=== PATIENT | male | born 1980 | race Caucasian/White ===

== ENCOUNTER 2016-07-06 00:01 | Outpatient (POV) ==
[2016-04-07 12:00] VITALS: BMI 45.8
== END 2016-07-06 00:02 ==
LOC: OUTPT 00:01
PROVIDERS: ATTEND Otolaryngology
DX: H91.90 Unspecified hearing loss, unspecified ear (principal)
CPT/HCPCS: 92557; 92567

== ENCOUNTER 2016-07-06 08:11 | Outpatient (CLI) ==
[2016-04-07 12:00] VITALS: BMI 45.8
--- NOTE | 2016-07-06 09:44 | MRI ---
EXAM: MRI brain without IV contrast. DATE: 07/06/2016. HISTORY: Headache. TECHNIQUE: Sagittal T1W, axial T2W, axial FLAIR, axial T1W, axial DWI, and coronal T2W GRE sequence s of the brain were obtained using 1.2 Susan magnet. No IV contrast. COMPARISON: None. FINDINGS: The ventricles and cisterns are normal in size and configuration. Some frontal and parie hakan lobe sulci near the superior vertex the brain are somewhat prominent due to involutional change. No midline shift, mass effect or abnormal extra-axial fluid collection is apparent. No acute infa rct, hemorrhage or neoplasm is identified. The ervin - white matter differentiation is normal. The 7th/8th cranial nerve complexes, cerebellopontine angles, brainstem, and visible cervical spinal cor d are normal. There is no cerebellar tonsillar ectopia. The pituitary gland is somewhat small in s ize. Corpus callosum is normal in size and configuration. Flow voids are present in the major intr acranial arteries and in the dural venous sinuses. No aneurysm, AVM or dural venous sinus thrombosi s is apparent. No orbit abnormality is identified. The mastoid air cells are unremarkable. There is no acute sinusitis. Frontal sinuses are hypoplastic. There is mild mucosal thickening vs retent ion cyst in the left maxillary sinus floor. No neck mass or lymphadenopathy is detected. No calvar ial neoplasm or acute fracture is evident. IMPRESSIONS: 1. No acute infarct, hemorrhage, neoplasm or hydrocephalus. 2. Minor cerebral involutional change (primarily frontoparietal). 3. Slightly small pituitary gland.
== END 2016-07-06 08:12 | disposition home or self-care (01) ==
LOC: RAD 08:11
PROVIDERS: ATTEND Nurse Practitioner Family
DX: R51 Headache (principal); H53.9 Unspecified visual disturbance

== ENCOUNTER 2016-09-23 08:44 | Outpatient (CLI) ==
[2016-04-07 12:00] VITALS: BMI 45.8
[2016-09-23 15:34] LABS: BASOPHILS % (AUTO) 0.5 % (0.0-3.0); EOSINOPHILS # (AUTO) 0.1 K/ul (0.0-0.7); EOSINOPHILS % (AUTO) 1.2 % (0.0-7.0); HEMATOCRIT 48.9 % (42.0-52.0); HEMOGLOBIN 16.2 g/dl (14.0-18.0); IMMATURE GRANULOCYTE % (AUTO) 0.3 % (0.0-5.0); LYMPHOCYTES # (AUTO) 1.6 K/uL (0.60-3.4); LYMPHOCYTES % (AUTO) 21.6 (10.0-50.0); MEAN CORPUSCULAR HEMOGLOBIN 31.5 pg (27.0-31.0); MEAN CORPUSCULAR HGB CONC 33.1 (31.8-35.4); MEAN CORPUSCULAR VOLUME 95.1 fl (80.0-94.0); MONOCYTES # (AUTO) 0.8 K/uL (0.4-2.0); MONOCYTES % (AUTO) 11.1 (0-10); NEUTROPHILS % (AUTO) 65.3; PLATELET COUNT 308 10^3/uL (140-440); RED BLOOD COUNT 5.14 10^6/ul (4.70-6.10)
[2016-09-23 15:38] LABS: FLU INTERNAL QC INTERNAL QC VALID; RAPID FLU A NEGATIVE (NEGATIVE); RAPID FLU B NEGATIVE (NEGATIVE)
[2016-09-23 16:10] LABS: ALBUMIN 4.2 g/dL (3.4-5.0); ALBUMIN/GLOBULIN RATIO 1.14; ANION GAP 12.1; BILIRUBIN,TOTAL 0.54 mg/dL (0.00-1.20); BUN/CREATININE RATIO 15.73; CALCIUM 9.6 mg/dL (8.2-10.2); CHOL/HDL RATIO 4.3 (4.5-6.4); CREATININE 0.89 mg/dL (0.60-1.10); POTASSIUM 4.1 mmol/L (3.5-5.1); TOTAL PROTEIN 7.9 g/dL (6.4-8.2)
== END 2016-09-23 08:45 | disposition home or self-care (01) ==
LOC: LAB 08:44
PROVIDERS: ATTEND Nurse Practitioner Family
DX: M79.1 Myalgia (principal); I10 Essential (primary) hypertension; E66.9 Obesity, unspecified; J02.9 Acute pharyngitis, unspecified; R05 Cough
CPT/HCPCS: 36415; 80053; 80061; 84443; 85025; 87651; 87804; 87880

== ENCOUNTER 2016-10-06 12:02 | Outpatient (CLI) | payer OTHER ==
[2016-04-07 12:00] VITALS: BMI 45.8
[2016-10-06 13:42] LABS: BILIRUBIN,URINE Negative (NEGATIVE); KETONES,URINE Negative (NEGATIVE); LEUKOCYTE ESTERASE ,URINE Negative (NEGATIVE); NITRITE,URINE Negative (NEGATIVE); PROTEIN,URINE Negative (NEGATIVE); URINE, BLOOD Negative (NEGATIVE)
[2016-10-06 13:43] LABS: H. PYLORI ANTIBODY NEGATIVE (NEGATIVE); H.PYLORI INTERNAL QC INTERNAL QC VALID
[2016-10-06 14:23] LABS: ADD URINE MICROSCOPIC NO
== END 2016-10-06 12:03 | disposition home or self-care (01) ==
LOC: LAB 12:02
PROVIDERS: ATTEND Nurse Practitioner Family
DX: R31.9 Hematuria, unspecified (principal); R10.9 Unspecified abdominal pain; Z87.442 Personal history of urinary calculi
CPT/HCPCS: 36415; 81001; 86677

== ENCOUNTER 2016-10-07 10:41 | Outpatient (CLI) ==
[2016-04-07 12:00] VITALS: BMI 45.8
--- NOTE | 2016-10-07 11:47 | CT ---
EXAM: CT of the abdomen pelvis with contrast History: Abdominal pain. Comparison: CT abdomen pelvis 04/07/2016 Technique: Multiplanar CT images through the abdomen pelvis were obtained following administration of IV contrast Findings: Partially visualized large calcified lymph nodes again seen within the posterior mediasti num. Lung bases are free of consolidation. Calcified granulomas seen within the left lower lobe. N o acute osseous abnormalities. No discrete gallstones identified by CT. No focal liver or splenic lesions. Pancreas is unremarkab le. Adrenal glands are unremarkable. Bilateral nephrolithiasis measuring up to 4 mm on the right a nd 3 mm on the left. No hydronephrosis. No renal masses. No bowel obstruction. No bladder wall t hickening. The appendix is normal. Prostate is not enlarged. No perirectal inflammation. Impression: Nonobstructing bilateral nephrolithiasis, similar to the prior study. Examination is o therwise unremarkable.
== END 2016-10-07 10:42 | disposition home or self-care (01) ==
LOC: RAD 10:41
PROVIDERS: ATTEND Nurse Practitioner Family
DX: R10.9 Unspecified abdominal pain (principal); R31.9 Hematuria, unspecified; Z87.442 Personal history of urinary calculi

== ENCOUNTER 2016-11-06 20:22 | Emergency (ER) ==
[2016-11-06 20:28] VITALS: BP 149/89; TEMP 98.8; BMI 43.8
[2016-11-06 20:32] LABS: BASOPHILS # (AUTO) 0.1 K/uL (0-0.2); BASOPHILS % (AUTO) 1.1 % (0.0-3.0); EOSINOPHILS # (AUTO) 0.1 K/ul (0.0-0.7); EOSINOPHILS % (AUTO) 1.8 % (0.0-7.0); HEMOGLOBIN 16.9 g/dl (14.0-18.0); IMMATURE GRANULOCYTE % (AUTO) 0.2 % (0.0-5.0); LYMPHOCYTES # (AUTO) 1.9 K/uL (0.60-3.4); LYMPHOCYTES % (AUTO) 29.6 (10.0-50.0); MEAN CORPUSCULAR HEMOGLOBIN 31.3 pg (27.0-31.0); MEAN CORPUSCULAR HGB CONC 34.5 (31.8-35.4); MEAN CORPUSCULAR VOLUME 90.7 fl (80.0-94.0); MONOCYTES # (AUTO) 0.7 K/uL (0.4-2.0); MONOCYTES % (AUTO) 11.9 (0-10); NEUTROPHILS # (AUTO) 3.5 K/ul (2.0-6.9); NEUTROPHILS % (AUTO) 55.4; PLATELET COUNT 250 10^3/uL (140-440); WHITE BLOOD COUNT 6.24 K/ul (4.2-10.2)
[2016-11-06 20:52] LABS: ALBUMIN 4.2 g/dL (3.4-5.0); ALBUMIN/GLOBULIN RATIO 1.35; ANION GAP 13.5; BILIRUBIN,TOTAL 0.87 mg/dL (0.00-1.20); BUN/CREATININE RATIO 9.17; CALCIUM 9.8 mg/dL (8.2-10.2); CREATININE 1.09 mg/dL (0.60-1.10); POTASSIUM 3.5 mmol/L (3.5-5.1); TOTAL PROTEIN 7.3 g/dL (6.4-8.2)
--- NOTE | 2016-11-06 20:59 | ED.PDOC ---
General ED Provider: Dr. JUSTIN ALAS-ER Chief Complaint: Cough Stated Complaint: i coughed up some blood--has chronic abd pain and has appt to see gi soon Time Seen by Physician: 20:25 Mode of Arrival: Walk-In Information Source: Patient Exam Limitations: No limitations [facility] Nursing and Triage Documentation Reviewed and Agree: Yes Respiratory Complaint Exam - Respiratory Complaint/Exam Onset/Duration: several days Symptoms Are: Still present Timing: Intermittent Initial Severity: Mild Current Severity: Moderate Location: Chest Character: Reports: Productive cough Aggravating: Reports: None Alleviating: Reports: None Associated Signs and Symptoms: Reports: Hemoptysis. Denies: Rapid breathing, Dyspnea, Fever, Chills, Chest pain, Pleuritic chest pain, Wheezing, Dizziness, Calf pain, Calf swelling, Edema, URI, Nasal congestion, Hoarseness, Sinus discomfort, Vomiting, Sore throat, Weight loss, Decreased oral intake, Increased thirst, Increased appetite, Increased urination Related History: Reports: Similar episode History of Healthcare-Acquired Pneumonia: No Related Surgical History: Reports: None Cardiac Risk Factors: Reports: Hypertension Tuberculosis Risk Factors: Reports: None Status Asthmaticus Risk Factors: Reports: None Home Oxygen Use: No Recent Stress Test: No Recent Echo/LV Function: No Current Antibiotic Use: No Current Asthma Medication Use: No Respiratory Distress: None Inadequate Respiratory Effort: No Dysphagia Present: No Stridor Present: No JVD Present: No Accessory Muscle Use: No Retractions: Not Present Diminished Breath Sounds: No Sinus Tenderness: None Grunting Respirations: No Kussmaul Respirations: No Differential Diagnoses: Pneumonia, Bronchitis, Other (gerd) Review of Systems - Review Of Systems Constitutional: Reports: No symptoms Eyes: Reports: No symptoms Ears, Nose, Mouth, Throat: Reports: No symptoms Respiratory: Reports: Cough Cardiac: Reports: No symptoms GI: Reports: Abdominal pain : Reports: No symptoms Musculoskeletal: Reports: No symptoms Skin: Reports: No symptoms Neurological: Reports: No symptoms Endocrine: Reports: No symptoms Hematologic/Lymphatic: Reports: No symptoms All Other Systems: Reviewed and Negative Past Medical History - Past Medical History Endocrine: Reports: None Cardiovascular: Reports: Hypertension Respiratory: Reports: Other Hematological: Reports: None Gastrointestinal: Reports: None Genitourinary: Reports: Kidney stones Neuro/Psych: Reports: None Musculoskeletal: Reports: None Cancer: Reports: None - Surgical History General Surgical History: Reports: None, Unknown - Family History Family History: Reports: Unknown - Social History Smoking Status: Never smoker Hx Substance Use: No Alcohol Screening: None Lives: With family - Immunizations Tetanus Shot up to Date: No Physical Exam - Physical Exam Appearance: Well-appearing, No pain distress, Well-nourished Eyes: DOUG, EOMI, Conjunctiva clear ENT: Ears normal, Nose normal, Oropharynx normal Neck: Supple Respiratory: Airway patent, Breath sounds clear, Breath sounds equal, Respirations nonlabored Cardiovascular: RRR GI/: Soft, Nontender, No masses, Bowel sounds normal, No Organomegaly Musculoskeletal: Normal strength, ROM intact, No edema, No calf tenderness Skin: Warm, Dry, Normal color Neurological: Sensation intact, Motor intact, Reflexes intact, Cranial nerves intact, Alert, Oriented Psychiatric: Affect appropriate, Mood appropriate Interpretation - Radiology Interpretation Radiology Interpretation By: Radiologist Radiology Results: Negative Exam Interpreted: CT Scan Critical Care Note - Critical Care Note Total Time (mins): 0 Course - Course Hematology/Chemistry: 11/06/16 20:30 11/06/16 20:30 Orders, Labs, Meds: Lab Review 11/06/16 20:30 WBC 6.24 RBC 5.40 Hgb 16.9 Hct 49.0 MCV 90.7 MCH 31.3 H MCHC 34.5 RDW Coeff of Jack 12.7 Plt Count 250 Immature Gran % (Auto) 0.2 Neut % (Auto) 55.4 Lymph % (Auto) 29.6 [place] % (Auto) 11.9 H Eos % (Auto) 1.8 Baso % (Auto) 1.1 Immature Gran # (Auto) 0.0 Neut # 3.5 Lymph # 1.9 [place] # 0.7 Eos # 0.1 Baso # 0.1 D-Dimer (Manual) 178.86 Sodium 141 Potassium 3.5 Chloride 105 Carbon Dioxide 26 Anion Gap 13.5 BUN 10 Creatinine 1.09 Estimated GFR (MDRD) 77.00 BUN/Creatinine Ratio 9.17 Glucose 112 H Calcium 9.8 Total Bilirubin 0.87 AST 25 ALT 39 Alkaline Phosphatase 53 Total Protein 7.3 Albumin 4.2 Globulin 3.1 Albumin/Globulin Ratio 1.35 Orders Category Date Time Status CBC W/ AUTO DIFF Stat LAB 11/06/16 20:30 Completed COMPREHENSIVE METABOLIC PANEL Stat LAB 11/06/16 20:30 Completed D-DIMER Stat LAB 11/06/16 20:[address] CHEST W/O CONTRAST Stat RADS 11/06/16 20:23 Completed he describes esophageal burning and indigestion--scheduled to see gi in december Vital Signs: Temp Pulse Resp BP Pulse Ox 11/06/16 20:23 98.8 F 101 H 16 149/89 H 97 Departure - Departure Time of Disposition: 21:22 Disposition: HOME SELF-CARE Discharge Problem: Hemoptysis GERD (gastroesophageal reflux disease) Qualifiers: Esophagitis presence: with esophagitis Qualifier Code: (K21.0) Gastro- esophageal reflux disease with esophagitis Instructions: Gastroesophageal Reflux Disease (ED) Condition: Good Pt referred to PMD for follow-up: Yes Additional Instructions: protonix 40mg #30,1rf...carafate 1gr tid #90,1rf---follow up wtih pcp concerning lymphadenopathy in chest Allergies/Adverse Reactions: Allergies No Known Allergies Allergy (Verified 11/06/16 20:30) Disposition Discussed With: Patient
--- NOTE | 2016-11-06 21:12 | CT ---
EXAM: CT of the chest without contrast. HISTORY: Hemoptysis. PROCEDURE: Contiguous axial CT images of the chest without contrast with coronal and sagittal refor mats. FINDINGS: The heart is within normal limits in size. The thoracic aorta is within normal limits in diameter. There are large calcified subcarinal and left hilar lymph nodes measuring up to 6.6 cm. Th ere is calcified granuloma in the left lower lobe. No infiltrate or consolidation. No evidence of m ass. The adrenal glands and visualized portion of the liver are normal in appearance. The bones and soft tissues are unremarkable. Impression: No acute cardiopulmonary disease. Old granulomatous disease.
== END 2016-11-06 21:35 | disposition home or self-care (01) ==
LOC: ED 20:22
DX: R04.2 Hemoptysis (principal); K21.0 Gastro-esophageal reflux disease with esophagitis
CPT/HCPCS: 36415; 80053; 85025; 85379; 99282

== ENCOUNTER 2016-11-08 15:44 | Emergency (ER) ==
[2016-11-08 15:49] VITALS: BP 131/82; TEMP 98; BMI 45.1
[2016-11-08] MEDS ORDERED: OCUFEN 0.03% OPTH SOL OP STA (15:54)
[2016-11-08] MEDS ORDERED: TETRACAINE 0.5% UNIT-DOSE OP STA (15:56)
[2016-11-08] MEDS ORDERED: FLUORETS OP STA (15:56)
[2016-11-08] MEDS ORDERED: EYE-STREAM OP STA (15:57)
[2016-11-08] MEDS ORDERED: FLUORETS OP ONE (15:58)
[2016-11-08] MEDS ORDERED: EYE-STREAM OP ONE (15:58)
[2016-11-08] MEDS ORDERED: TETRACAINE 0.5% UNIT-DOSE OP ONE (15:58)
--- NOTE | 2016-11-08 16:07 | ED.PDOC ---
General ED Provider: Dr. HARINI SIMMONS Chief Complaint: Eye Problem Stated Complaint: F/B SENSATION PAIN X 24 HOURS Time Seen by Physician: 16:00 (NEGATIVEVTRAUMA ) Mode of Arrival: Walk-In Information Source: Patient Exam Limitations: No limitations [facility] T[facility] Documentation Reviewed and Agree: Yes (FARIBA PRESENT) EENT Complaint Exam - Eye Complaint/Exam Onset/Duration: 1 DAY Symptoms Are: Still present Timing: Constant Initial Severity: Moderate Current Severity: Moderate Location: Right Character: Reports: Dull Aggravating: Reports: Light Alleviating: Reports: Darkness Associated Signs and Symptoms: Reports: Photophobia, Clear drainage. Denies: Purulent drainage, Vision impairment, Fever, Swelling Eye Surgical History: Reports: None Penetrating Injury Risk Factors: None Globe Rupture Risk Factors: None Acute Glaucoma Risk Factors: None Optic Artery Occlusion Risk Factors: None Visual Field: Normal Extraocular Movement: Normal Orbit Findings: Normal Globe Findings: Intact Lid Findings: Normal Conjunctival Findings: Red (RIGHT) Corneal Findings: Clear Fluorescein Uptake: Yes (MINIMAL) Fundi: Normal Differential Diagnoses: Conjunctivitis, Corneal Abrasion Review of Systems - Review Of Systems Constitutional: Reports: No symptoms Eyes: Reports: Vision change, Foreign body sensation, Pain, Photophobia Ears, Nose, Mouth, Throat: Reports: No symptoms Respiratory: Reports: No symptoms Cardiac: Reports: No symptoms GI: Reports: No symptoms : Reports: No symptoms Musculoskeletal: Reports: No symptoms Skin: Reports: No symptoms Neurological: Reports: No symptoms Endocrine: Reports: No symptoms Hematologic/Lymphatic: Reports: No symptoms All Other Systems: Reviewed and Negative Past Medical History - Past Medical History Endocrine: Reports: None Cardiovascular: Reports: Hypertension Respiratory: Reports: Other Hematological: Reports: None Gastrointestinal: Reports: None Genitourinary: Reports: Kidney stones Neuro/Psych: Reports: None Musculoskeletal: Reports: None Cancer: Reports: None - Surgical History General Surgical History: Reports: None, Unknown - Family History Family History: Reports: Unknown - Social History Smoking Status: Never smoker Hx Substance Use: No Alcohol Screening: None - Immunizations Tetanus Shot up to Date: (unsure) Physical Exam - Physical Exam Appearance: Well-appearing, No pain distress, Well-nourished Eyes: Conjunctiva inflammed (RIGHT 1MM CORNEAL ABRASION RIGHT SIDE ) ENT: Ears normal, Nose normal, Oropharynx normal Respiratory: Airway patent, Breath sounds clear, Breath sounds equal, Respirations nonlabored Cardiovascular: RRR, Pulses normal, No rub, No murmur GI/: Soft, Nontender, No masses, Bowel sounds normal, No Organomegaly Musculoskeletal: Normal strength, ROM intact, No edema, No calf tenderness Skin: Warm, Dry, Normal color Neurological: Sensation intact, Motor intact, Reflexes intact, Cranial nerves intact, Alert, Oriented Psychiatric: Affect appropriate, Mood appropriate Critical Care Note - Critical Care Note Total Time (mins): 0 Course - Course Orders, Labs, Meds: Orders Category Date Time Status Balanced Salt Solution [Eye-Stream] MEDS 11/08/16 15:58 Discontinued 1 bottle OP .STK-MED ONE Balanced Salt Solution [Eye-Stream] MEDS 11/08/16 15:57 Stat 1 bottle OP ONCE STA Fluorescein Sodium [Fluorets] MEDS 11/08/16 15:58 Discontinued 1 strip OP .STK-MED ONE Fluorescein Sodium [Fluorets] MEDS 11/08/16 15:56 Stat 1 strip OP ONCE STA Flurbiprofen Sodium Opth [Ocufen 0.03% Opth Miguelina] MEDS 11/08/16 15:54 Stat 1 drop OP ONCE STA Tetracaine HCl/Pf [Tetracaine 0.5% Unit-Dose] MEDS 11/08/16 15:58 Discontinued 1 drop OP .STK-MED ONE Tetracaine HCl/Pf [Tetracaine 0.5% Unit-Dose] MEDS 11/08/16 15:56 Stat 2 drop OP ONCE STA Medications Discontinued Medications Generic Name Dose Route Start Last Admin Trade Name Freq PRN Reason Stop Dose Admin Eye Irrigation Solution 1 bottle 11/08/16 15:57 Eye-Stream OP 11/08/16 15:58 ONCE STA Fluorescein Sodium 1 strip 11/08/16 15:56 Fluorets OP 11/08/16 15:57 ONCE STA Flurbiprofen Sodium 1 drop 11/08/16 15:54 Ocufen 0.03% Opth Miguelina OP 11/08/16 15:55 ONCE STA Tetracaine HCl 2 drop 11/08/16 15:56 Tetracaine 0.5% Unit-Dose OP 11/08/16 15:57 ONCE STA Vital Signs: Temp Pulse Resp BP Pulse Ox 11/08/16 15:44 98 F 85 20 131/82 98 Departure - Departure Time of Disposition: 16:07 (RECHECK BY MYSELF IN AM) Disposition: HOME SELF-CARE Discharge Problem: Corneal abrasion Qualifiers: Encounter type: initial encounter Laterality: right Qualifier Code: (S05.01XA) Injury of conjunctiva and corneal abrasion without foreign body, right eye, initial encounter Instructions: Corneal Abrasion (ED) Condition: Good Pt referred to PMD for follow-up: No Additional Instructions: Please call your Family Physician as soon as possible to schedule a follow-up appointment. Allergies/Adverse Reactions: Allergies No Known Allergies Allergy (Verified 11/08/16 15:50)
== END 2016-11-08 16:17 | disposition home or self-care (01) ==
LOC: ED 15:44
DX: S05.01XA Injury of conjunctiva and corneal abrasion without foreign body, right eye, initial encounter (principal)
CPT/HCPCS: 99282

== ENCOUNTER 2016-11-28 16:25 | Outpatient (CLI) | payer OTHER ==
[2016-11-28 17:32] LABS: BILIRUBIN,URINE Negative (NEGATIVE); KETONES,URINE Negative (NEGATIVE); LEUKOCYTE ESTERASE ,URINE Negative (NEGATIVE); NITRITE,URINE Negative (NEGATIVE); PROTEIN,URINE Negative (NEGATIVE); URINE, BLOOD Negative (NEGATIVE)
[2016-11-28 17:37] LABS: ADD URINE MICROSCOPIC NO
== END 2016-11-28 16:26 | disposition home or self-care (01) ==
LOC: LAB 16:25
PROVIDERS: ATTEND Nurse Practitioner Family
DX: R30.9 Painful micturition, unspecified (principal)
CPT/HCPCS: 81001; 87800

== ENCOUNTER 2017-05-15 15:24 | Outpatient (CLI) ==
[2017-05-15 15:40] LABS: BASOPHILS # (AUTO) 0.1 K/uL (0-0.2); BASOPHILS % (AUTO) 0.6 % (0.0-3.0); EOSINOPHILS # (AUTO) 0.2 K/ul (0.0-0.7); EOSINOPHILS % (AUTO) 2.1 % (0.0-7.0); HEMATOCRIT 47.8 % (42.0-52.0); HEMOGLOBIN 16.8 g/dl (14.0-18.0); IMMATURE GRANULOCYTE % (AUTO) 0.4 % (0.0-5.0); LYMPHOCYTES # (AUTO) 1.8 K/uL (0.60-3.4); LYMPHOCYTES % (AUTO) 22.7 (10.0-50.0); MEAN CORPUSCULAR HEMOGLOBIN 31.6 pg (27.0-31.0); MEAN CORPUSCULAR HGB CONC 35.1 (31.8-35.4); MEAN CORPUSCULAR VOLUME 89.8 fl (80.0-94.0); MONOCYTES % (AUTO) 11.8 (0-10); NEUTROPHILS # (AUTO) 5.1 K/ul (2.0-6.9); NEUTROPHILS % (AUTO) 62.4; PLATELET COUNT 268 10^3/uL (140-440); RED BLOOD COUNT 5.32 10^6/ul (4.70-6.10); WHITE BLOOD COUNT 8.12 K/ul (4.2-10.2)
== END 2017-05-15 15:25 | disposition home or self-care (01) ==
LOC: LAB 15:24
PROVIDERS: ATTEND Physician Assistant
DX: R71.8 Other abnormality of red blood cells (principal)
CPT/HCPCS: 36415; 85025

== ENCOUNTER 2025-05-11 12:21 | Inpatient (IN) ==
--- NOTE | 2025-05-11 12:43 | ED.PDOC ---
General [facility] ED Provider: Dr. BOOM JEWELL MD Chief Complaint: Cough Stated Complaint: Patient is a 45-year-old male with past medical history of hypertension who presents with complaint of headache, body aches, nasal congestion, ear fullness, cough, throat pain and elevated blood pressures. The patient states that his symptoms started about a week ago. Cough is productive of yellow phlegm. Patient has been having difficulty sleeping because of the cough as it gets worse when he lies down. Patient denies any abdominal pain, chest pain or shortness of breath. Patient has been having headaches from coughing. He has sore throat from coughing but does not hurt when he swallows. Appetite is decreased. The patient states that his blood pressures have been running high, normally his blood pressures run around 80s systolic over 60s but with this sickness the maximum blood pressure he had at home was 110 systolic. Patient denies any exposure to sick contacts. Patient denies any history of asthma or COPD. Patient denies smoking. Patient denies any exposure to sick contacts. Patient has been taking [id number] medications and it has not helped. Time Seen by Provider: 05/11/25 12:43 Mode of Arrival: Walk-In Information Source: Patient Exam Limitations: No limitations Primary Care Provider: MOHAN SYED Nursing and Triage Documentation Reviewed and Agree: Yes Opioid Naive vs. Tolerant What is Opioid Naive?: *Opioid Naive implies the patient is not already taking opioids or not chronically receiving opioids on a daily basis. *PRN dosing is not "usually" associated with tolerance. *Patients are at higher risk of over-sedation and aspiration. What is Opioid Tolerant?: *Opioid Tolerance implies less than the expected response to an opioid. *Acquired tolerance is defined by the patient taking 60mg of oral morphine daily (or equianalgesic dose of another opioid) for 1 week or more. *Often associated with chronic pain. *May take more than usual dose to achieve desired pain control. Review of Systems Review Of Systems Constitutional: Reports Fever, Weakness and Loss of appetite Eyes: Reports No symptoms Ears, Nose, Mouth, Throat: Reports Nose discharge and Throat pain Respiratory: Reports Cough Cardiac: Reports No symptoms GI: Reports No symptoms : Reports No symptoms Musculoskeletal: Reports Muscle pain Skin: Reports No symptoms Neurological: Reports Headache Endocrine: Reports No symptoms Hematologic/Lymphatic: Reports No symptoms All Other Systems: Reviewed and Negative [facility] Medical History (Updated 05/12/25 @ 02:05 by BOOM JEWELL MD) Hypertension I10 - Essential (primary) hypertension (ICD-10) Hyperlipidemia E78.5 - Hyperlipidemia, unspecified (ICD-10) Social History Smoking and tobacco status: Never smoker Surgical History History of dental surgery 2015 Z92.89 - Personal history of other medical treatment (ICD-10) Physical Exam Physical Exam Appearance: Reports Ill-appearing, No pain distress, Well-nourished and Obese Ill-appearing: Mild Pain Distress: None Eyes: Reports DOUG, EOMI, Conjunctiva clear and Conjunctiva inflammed ENT: Reports Other (Nasal congestion, ear congestion, runny nose) Neck: Supple Respiratory: Reports Breath sounds diminished and Rhonchi; Denies Crackles or Retractions Cardiovascular: Reports RRR, Pulses normal and No murmur GI/: Reports Soft and Nontender Musculoskeletal: Reports Normal strength, ROM intact and No edema Skin: Reports Warm and Normal color Neurological: Reports Sensation intact, Motor intact and Cranial nerves intact Psychiatric: Reports Affect appropriate and Mood appropriate Interpretation Radiology Interpretation Radiology Interpretation By: Radiologist Radiology Results: Positive Exam Interpreted: CXR (CHEST PA AND LATERAL HISTORY: cough, fever. COMPARRISON: 12/06/2024 FINDINGS: The cardiomediastinal silouette is normal in size. Mediastinal and left perihilar calcified granulomas are again suggested. Pulmonary vascularity is within normal limits. Mild left basilar patchy opacities are seen. ) Course Course 05/11/25 12:58 05/11/25 12:58 Orders, Labs, Meds: Lab Review 05/11/25 05/11/25 12:51 12:58 WBC 12.93 H RBC 5.04 Hgb 15.8 Hct 46.7 MCV 92.7 MCH 31.3 H MCHC 33.8 RDW Coeff of Jack 12.4 Plt Count 306 Immature Gran % (Auto) 0.4 Neut % (Auto) 74.3 Lymph % (Auto) 9.9 L [place] % (Auto) 14.2 H Eos % (Auto) 0.8 Baso % (Auto) 0.4 Neut # (Auto) 9.6 H Lymph # (Auto) 1.3 [place] # (Auto) 1.8 Eos # (Auto) 0.1 Baso # (Auto) 0.1 Immature Gran # (Auto) 0.1 Sodium 133.3 L Potassium 3.36 L Chloride 95.4 L Carbon Dioxide 28.4 Anion Gap 12.86 BUN 28.6 H Creatinine 1.37 H Estimated GFR (MDRD) 56.00 BUN/Creatinine Ratio 20.87 Glucose 119.1 H Lactic Acid 0.90 Calcium 9.39 Total Bilirubin 1.22 AST 55.4 ALT 46.1 Alkaline Phosphatase 79.0 NT-Pro-B Natriuret Pep 66 Total Protein 8.49 H Albumin 4.46 Globulin 4.03 Albumin/Globulin Ratio 1.10 Influ A Molecular Assay Negative by naat Influ B Molecular Assay Negative by naat RSV Antigen Negative by naat SARS CoV-2 RNA Rapid LEAH Negative Orders Category Date Time Status ADMIT OBSERVATION [PLACE PATIENT OBSERVATION] .TO ADMISSION 05/11/25 15:04 Active MEDSURG (MONITORED BED) ACTIVITY .Early Mobilization for VTE Prevention CARE 05/11/25 14:50 Active INTAKE & OUTPUT Q8HR CARE 05/11/25 14:50 Active TELEMETRY MONITORING TELE CARE 05/11/25 15:04 Active VITAL SIGNS Q4HR CARE 05/11/25 14:51 Active CARDIAC DIET DIETARY 05/11/25 Dinner Ordered BLOOD CULTURE (ED ONLY) Stat LAB 05/11/25 14:19 Received CBC W/ AUTO DIFF DAILY@0600 LAB 05/12/25 06:00 Ordered CBC W/ AUTO DIFF DAILY@0600 LAB 05/13/25 06:00 Ordered CBC W/ AUTO DIFF Stat LAB 05/11/25 12:58 Completed CMP [COMPREHENSIVE METABOLIC PANEL] Stat LAB 05/11/25 12:58 Completed COMPREHENSIVE METABOLIC PANEL DAILY@0600 LAB 05/12/25 06:00 Ordered COMPREHENSIVE METABOLIC PANEL DAILY@0600 LAB 05/13/25 06:00 Ordered COVID [SARS COV-2 RNA RAPID LEAH] Stat LAB 05/11/25 12:51 Completed FLU A & B MOLECULAR [FLU A/B MOLECULAR] Stat LAB 05/11/25 12:51 Completed LACTIC ACID Stat LAB 05/11/25 12:58 Completed LEGIONELLA URINARY ANTIGEN ONCE LAB 05/11/25 16:01 Received MRSA SCREEN ONCE LAB 05/15/25 06:30 Uncollected NT-PROBNP(ED) Stat LAB 05/11/25 12:58 Completed RSV Stat LAB 05/11/25 12:51 Completed SPUTUM CULTURE ONCE LAB 05/11/25 16:42 Received STREP PNEUMO AG, URINE ONCE LAB 05/11/25 16:01 Received Acetaminophen [Tylenol] Meds 05/11/25 14:50 Active 650 mg PO Q4H PRN Azithromycin [Zithromax] Meds 05/11/25 16:00 Active 500 mg PO DAILY Ceftriaxone/D5w 1 gm Premix [Rocephin 1 gm/50 ml D5w] Meds 05/12/25 09:00 Active 1 gm in 50 ml IV DAILY Levofloxacin/D5w [Levaquin 750 mg/150 ml D5w] Meds 05/11/25 13:52 Discontinued 750 mg in 150 ml IV ONCE Sodium Chloride 0.9% [Sodium Chloride] 1,000 ml Meds 05/11/25 15:00 Active IV 75 mls/hr Sodium Chloride 0.9% [Sodium Chloride] 1,000 ml Meds 05/11/25 13:55 Discontinued IV BOLUS CHEST, 2 VIEWS PA & LAT Stat RADS 05/11/25 12:48 Completed Medications Generic Name Dose Route Start Last Admin Trade Name Freq PRN Reason Stop Dose Admin Acetaminophen 650 mg 05/11/25 14:50 05/11/25 17:40 Acetaminophen 325 Mg Tablet PO 650 mg Q4H PRN Administration Mild Pain Albuterol Sulfate 2.5 mg 05/11/25 16:58 Albuterol Sulfate 0.083% Vial.Neb NEB RTQ4H PRN Wheezing Albuterol/Ipratropium 3 ml 05/11/25 18:00 05/12/25 01:33 Ipratropium/Albuterol Vial.Neb NEB 3 ml RTQ4H RUBÉN Administration Azithromycin 500 mg 05/11/25 16:00 05/11/25 18:41 Azithromycin 250 Mg Tablet PO 05/14/25 15:59 500 mg DAILY RUBÉN Administration Sodium Chloride 1,000 mls @ 75 mls/hr 05/11/25 15:00 05/11/25 18:42 Sodium Chloride IV 75 mls/hr .[id number] RUBÉN Administration CEFTRIAXONE/D5W 1 GM PREMIX 1 gm in 50 mls @ 100 mls/hr 05/12/25 09:00 Rocephin 1 Gm/50 Ml D5w IV 05/15/25 08:59 DAILY RUBÉN Lisinopril 40 mg 05/12/25 09:00 Lisinopril 40 Mg Tablet PO DAILY RUBÉN Methylprednisolone Sodium Succinate 40 mg 05/11/25 18:00 05/11/25 20:40 Methylprednisolone Sod Succ/Pf 40 Mg/Ml Vial IVP 40 mg Q8HR RUBÉN Administration Pantoprazole Sodium 40 mg 05/12/25 09:00 Pantoprazole Sodium 40 Mg Tablet.Dr PO DAILY RUBÉN Tamsulosin HCl 0.4 mg 05/12/25 09:00 Tamsulosin Hcl 0.4 Mg Cap.Er.24h PO DAILY RUBÉN Discontinued Medications Generic Name Dose Route Start Last Admin Trade Name Freq PRN Reason Stop Dose Admin Levofloxacin/Dextrose 750 mg in 150 mls @ 100 mls/hr 05/11/25 13:52 05/11/25 14:24 Levaquin 750 Mg/150 Ml D5w IV 05/11/25 15:21 100 mls/hr ONCE ONE Administration Sodium Chloride 1,000 mls @ 1,000 mls/hr 05/11/25 13:55 05/11/25 14:24 Sodium Chloride IV 05/11/25 14:54 1,000 mls/hr BOLUS ONE Administration Iodixanol 100 ml 05/11/25 19:32 05/11/25 20:04 Iodixanol 320 Mg/Ml 100ml IVP 05/11/25 19:33 100 ml ONCE ONE Administration Iodixanol 100 ml 05/11/25 19:55 Iodixanol 320 Mg/Ml 100ml IVP 05/11/25 19:56 ONCE ONE Potassium Chloride 20 meq 05/11/25 20:22 05/11/25 22:19 Potassium Chloride 20 Meq Tab PO 05/11/25 20:23 20 meq ONCE ONE Administration Vital Signs: Temp Pulse Resp BP Pulse Ox 05/11/25 12:27 100.4 F H 125 H 18 124/86 93 L Differential diagnosis include but not limited to pneumonia, sinusitis, pleural effusion, PE, pneumothorax, CHF exacerbation, asthma exacerbation, COPD exacerbation, allergies, sinusitis, pharyngitis, esophagitis, GERD, malignancy. ER course: Chest x-ray shows Patient is a 45-year-old male who presented with complaint of fevers, body aches, headache, dizziness, nasal congestion, productive cough and difficulty breathing for almost a week. Labs shows leukocytosis, ABELINO. Patient was started on IV fluids. Patient was administered a dose of Levaquin. Will admit the patient to monitor his renal functions and to ensure hydration. Patient agreeable with the plan. Discussed with ELDA Fitzpatrick for the hospitalist group and the patient was admitted to Dr. uSh. Discharge Plan Discharge Patient Disposition: PLACED OBSERVATION Discharge Problem: Pneumonia Qualifiers: Pneumonia type: due to unspecified organism Laterality: left Lung location: l ower lobe of lung Qualified Code(s): J18.9 - Pneumonia, unspecified organism Did you review [place] [employer] for ALL controlled substances?: Not Applicable ED Provider: BOOM JEWELL
[2025-05-11 13:06] LABS: IMMATURE GRANULOCYTE # (AUTO) 0.1 (0.0-1.0); IMMATURE GRANULOCYTE % (AUTO) 0.4 % (0.0-5.0); RDW COEFFICIENT OF VARIATION 12.4 % (11.6-14.8)
[2025-05-11 13:24] LABS: MOLECULAR FLU A NEGATIVE BY NAAT (NEGATIVE); MOLECULAR FLU B NEGATIVE BY NAAT (NEGATIVE); RSV MOLECULAR NEGATIVE BY NAAT (NEGATIVE); SARS COV-2 RNA RAPID NAAT NEGATIVE (NEGATIVE)
[2025-05-11 13:31] LABS: CREATININE 1.37 mg/dL (0.60-1.10)
--- NOTE | 2025-05-11 13:41 | DI ---
EXAM: CHEST PA AND LATERAL HISTORY: cough, fever. COMPARRISON: 12/06/2024 FINDINGS: The cardiomediastinal silouette is normal in size. Mediastinal and left perihilar calcified granulomas are again suggested. Pulmonary vascularity is within normal limits. Mild left basilar patchy opacities are seen. Osseous structures are unremarkable. IMPRESSION: Left basilar pneumonia.
[2025-05-11] MEDS: LEVAQUIN 750 MG/150 ML D5W 750 MG/150 ML BAG IV ONE (14:24)
[2025-05-11] MEDS: SODIUM CHLORIDE 1,000 ML IV ONE (14:24)
[2025-05-11 16:57] VITALS: BMI 47.7
[2025-05-11] MEDS ORDERED: ALBUTEROL 0.083% NEB NEB PRN (16:58)
[2025-05-11] MEDS: TYLENOL PO PRN (17:40)
[2025-05-11] MEDS: DUONEB NEB SCH (18:04)
[2025-05-11] MEDS: ZITHROMAX PO SCH (18:41)
[2025-05-11] MEDS: SODIUM CHLORIDE 1,000 ML IV SCH (18:42)
[2025-05-11] MEDS: SOLU-MEDROL 40 MG IVP SCH (18:49)
[2025-05-11] MEDS: VISIPAQUE 320 MG/ML 100ML IVP ONE (19:33)
[2025-05-11] MEDS ORDERED: VISIPAQUE 320 MG/ML 100ML IVP ONE (19:55)
--- NOTE | 2025-05-11 20:11 | PCM ---
Date of Service Date Seen by Provider: 05/11/25 Time Seen by Provider: 15:00 Admit Day/Time Admission Date: 05/11/25 Admission Time: 14:30 Reason for Admission Chief Complaint: CAP,ABELINO Hospital Provider Hospital Provider: JENARO FITZPATRICK, [facility] [place] Primary Care Physician: MOHAN SYED History of Present Illness History of Present Illness: 45 yo male with pmh oh HTN, GERD, and kidney stones presented to the ER with complaints of cough, fever, and shortness of breath. States he has been sick for approximately 1 week. Initially started as a cough and congestion. Cough became productive the last couple days with yellow/green sputum. Reports shortness of air on exertion and has had a fever as high as 102. Chest xray showed left lower lobe pneumonia. Initially was not requiring oxygen in the ER. Met sepsis criteria and blood cultures obtained. Received a dose of levaquin. Admitted to med/surg observation. Per RN, upon arrival to the med/surg floor. O2 sat was running 87-89% on RA with HR in 110s. 2L o2 applied and sat increased to 92%. 100.4 temp as well. Case Discussed With Case Discussed With: Patient's case was discussed with the ER Physicians, Dr. Patel. [facility] Medical History Hypertension I10 - Essential (primary) hypertension (ICD-10) Hyperlipidemia E78.5 - Hyperlipidemia, unspecified (ICD-10) Surgical History History of dental surgery 2015 Z92.89 - Personal history of other medical treatment (ICD-10) Social History Smoking and tobacco status: Never smoker Allergies Allergies Allergy/AdvReac Type Severity Reaction Status Date / Time No Known Allergies Allergy Verified 05/11/25 12:25 Current Medications Home Medications Acetaminophen (Acetaminophen 325 Mg Tablet) 650 mg PO Q4H PRN PRN Reason: Mild Pain Last Admin: 05/11/25 17:40 Dose: 650 mg Albuterol Sulfate (Albuterol Sulfate 0.083% Vial.Neb) 2.5 mg NEB RTQ4H PRN PRN Reason: Wheezing Albuterol/Ipratropium (Ipratropium/Albuterol Vial.Neb) 3 ml NEB RTQ4H [facility] Last Admin: 05/11/25 18:04 Dose: 3 ml Azithromycin (Azithromycin 250 Mg Tablet) 500 mg PO DAILY [facility] Stop: 05/14/25 15:59 Last Admin: 05/11/25 18:41 Dose: 500 mg Sodium Chloride (Sodium Chloride) 1,000 mls @ 75 mls/hr IV .[id number] [facility] Last Admin: 05/11/25 18:42 Dose: 75 mls/hr CEFTRIAXONE/D5W 1 GM PREMIX (Rocephin 1 Gm/50 Ml D5w) 1 gm in 50 mls @ 100 mls/hr IV DAILY [facility] Stop: 05/15/25 08:59 Lisinopril (Lisinopril 40 Mg Tablet) 40 mg PO DAILY [facility] Methylprednisolone Sodium Succinate (Methylprednisolone Sod Succ/Pf 40 Mg/Ml Vial) 40 mg IVP Q8HR [facility] Last Admin: 05/11/25 18:49 Dose: 40 mg Pantoprazole Sodium (Pantoprazole Sodium 40 Mg Tablet.Dr) 40 mg PO DAILY [facility] Tamsulosin HCl (Tamsulosin Hcl 0.4 Mg Cap.Er.24h) 0.4 mg PO DAILY [facility] lisinopril 40 mg tablet 40 mg PO DAILY #30 tab-caps 04/27/17 [History Confirmed 05/11/25] pantoprazole 40 mg tablet,delayed release 40 mg PO DAILY 12/30/18 [History C onfirmed 05/11/25] tamsulosin 0.4 mg capsule (Flomax) 0.4 mg PO DAILY #10 caps 11/30/24 [Rx Confirmed 05/11/25] dicyclomine 20 mg tablet 20 mg PO 2XD PRN abdominal pain 05/11/25 [History Confirmed 05/11/25] hydrochlorothiazide 25 mg tablet 25 mg PO QAM blood pressure 05/11/25 [History Confirmed 05/11/25] Opioid Naive vs. Tolerant Does Patient Take Opioids?: No Is Patient Opioid Naive?: Yes What is Opioid Naive?: *Opioid Naive implies the patient is not already taking opioids or not c hronically receiving opioids on a daily basis. *PRN dosing is not "usually" associated with tolerance. *Patients are at higher risk of over-sedation and aspiration. Is Patient Opioid Tolerant?: No What is Opioid Tolerant?: *Opioid Tolerance implies less than the expected response to an opioid. *Acquired tolerance is defined by the patient taking 60mg of oral morphine daily (or equianalgesic dose of another opioid) for 1 week or more. *Often associated with chronic pain. *May take more than usual dose to achieve desired pain control. Review of Systems Constitutional: Reports Fever and Fatigue Head: Reports Normocephalic and Atraumatic Eyes: Reports No symptoms Ears: Reports No symptoms Nose: Reports Congestion Mouth: Reports No symptoms Throat: Reports No symptoms Cardiovascular: Reports No symptoms Respiratory: Reports Cough, Shortness of air and Pain with breathing Gastrointestinal: Reports No symptoms Genitourinary: Reports No Symptoms Musculoskeletal: Reports No symptoms Endocrine: Reports No symptoms Hematology: Reports No symptoms Immunology: Reports No symptoms Neurological: Reports No symptoms Psychiatric: Reports No symptoms Physical examination Most Recent Vital Signs: Most Recent Vital Signs Temperature 99.7 F 05/11/25 18:00 Temperature Source Oral 05/11/25 18:00 Temperature Source Oral 05/11/25 12:27 Pulse Rate 114 H 05/11/25 18:00 Respiratory Rate 20 05/11/25 18:00 Blood Pressure 120/77 05/11/25 18:00 Blood Pressure Mean 91 05/11/25 18:00 Blood Pressure Left Arm 120/77 05/11/25 16:44 Blood Pressure Location Left Arm 05/11/25 18:00 Blood Pressure Position Supine 05/11/25 16:44 O2 Sat by Pulse Oximetry 92 L 05/11/25 18:08 Oxygen Delivery Method Nasal Cannula 05/11/25 19:57 Oxygen Flow Rate 2 05/11/25 19:25 Height 5 ft 7 in 05/11/25 16:44 Weight 138.1 kg 05/11/25 16:44 Telemetry Heart Rate 84 04/08/16 13:00 Appearance: Positive No Apparent Distress and Alert and Oriented x3 Skin: Positive Warm and Good Color HEENT: Positive Normocephalic and PERRLA Neck: Positive Supple and Midline Trachea Chest/Lungs: Positive Symmetrical With Equal Breath Sounds, Rhonci (LL lobe) and Good Air Movement all 4 Lung [place] Heart: Positive RRR and Pulses Normal GI/: Positive Soft, Nontender, Bowel Sounds Normal and No Distention Musculoskeletal: Positive Not Examined Extremities: Positive Intact Peripheral Pulses, Stable Joints Without Laxity and Good ROM in All Joints; Negative Edema Neurological: Positive Sensation Intact, Motor intact, Reflexes Intact, Alert, Oriented and Muscle Strength 5/5 in Upper and Lower Extremities Bilaterally Labs This Visit Labs This Visit: Labs This Visit 05/11/25 05/11/25 12:51 12:58 WBC 12.93 H RBC 5.04 Hgb 15.8 Hct 46.7 MCV 92.7 MCH 31.3 H MCHC 33.8 RDW Coeff of Jack 12.4 Plt Count 306 Immature Gran % (Auto) 0.4 Neut % (Auto) 74.3 Lymph % (Auto) 9.9 L [place] % (Auto) 14.2 H Eos % (Auto) 0.8 Baso % (Auto) 0.4 Neut # (Auto) 9.6 H Lymph # (Auto) 1.3 [place] # (Auto) 1.8 Eos # (Auto) 0.1 Baso # (Auto) 0.1 Immature Gran # (Auto) 0.1 Sodium 133.3 L Potassium 3.36 L Chloride 95.4 L Carbon Dioxide 28.4 Anion Gap 12.86 BUN 28.6 H Creatinine 1.37 H Estimated GFR (MDRD) 56.00 BUN/Creatinine Ratio 20.87 Glucose 119.1 H Lactic Acid 0.90 Calcium 9.39 Total Bilirubin 1.22 AST 55.4 ALT 46.1 Alkaline Phosphatase 79.0 NT-Pro-B Natriuret Pep 66 Total Protein 8.49 H Albumin 4.46 Globulin 4.03 Albumin/Globulin Ratio 1.10 Influ A Molecular Assay Negative by naat Influ B Molecular Assay Negative by naat RSV Antigen Negative by naat SARS CoV-2 RNA Rapid LEAH Negative Imaging Imaging: EXAM: CHEST PA AND LATERAL HISTORY: cough, fever. COMPARRISON: 12/06/2024 FINDINGS: The cardiomediastinal silouette is normal in size. Mediastinal and left perihilar calcified granulomas are again suggested. Pulmonary vascularity is within normal limits. Mild left basilar patchy opacities are seen. Osseous structures are unremarkable. IMPRESSION: Left basilar pneumonia. Review Statement Review Statement: I have independently reviewed and interpreted the labs/EKGs/imaging that were ordered by the ER provider. I have reviewed all outside records that are available currently in our EMR including imaging/notes/labs from previous visits. Plan Plan: 1. Sepsis in setting of CAP - blood cultures pending, rocephin and azith for abx coverage 2. Acute Hypoxic Respiratory Failure in setting of CAP - wean oxygen as kaylee erated, steroids, nebs 3. CAP - rocephin and azith, nebs, steroids, MRSA, strep pneumo, legionella, and sputum culture ordered, incentive spirometry 4. Dehydration - mild, NS@75mL/hr, avoid nephrotoxins/hypotension 5. HTN - chronic, continue home medications 6. GERD - chronic, continue home medications DVT Prophylaxis: Ambulation Time Spent: Greater than 80 minutes spent with patient, 50% of the time spent with this patient was devoted to counseling and coordination of care. [facility] Plannin minutes spent discussing advance care planning. Disposition: Admit to: Med/surg Observation Full Code Discussed Plan of Care with Dr. Suh. Medications Medication Orders: Medications Ordered Category Date Time Status Acetaminophen [Tylenol] Meds 05/11/25 14:50 Active 650 mg PO Q4H PRN Albuterol Sulfate 0.083% Neb [Albuterol 0.083% Neb] Meds 05/11/25 16:58 Active 2.5 mg NEB RTQ4H PRN Azithromycin [Zithromax] Meds 05/11/25 16:00 Active 500 mg PO DAILY Ceftriaxone/D5w 1 gm Premix [Rocephin 1 gm/50 ml D5w] Meds 05/12/25 09:00 Active 1 gm in 50 ml IV DAILY Ipratropium/Albuterol Neb [Duoneb] Meds 05/11/25 18:00 Active 3 ml NEB RTQ4H Lisinopril [Zestril] Meds 05/12/25 09:00 Active 40 mg PO DAILY Methylprednisolone Sod Succ/Pf [Solu-Medrol 40 mg] Meds 05/11/25 18:00 Active 40 mg IVP Q8HR Pantoprazole Sodium [Protonix] Meds 05/12/25 09:00 Active 40 mg PO DAILY Sodium Chloride 0.9% [Sodium Chloride] 1,000 ml Meds 05/11/25 15:00 Active IV 75 mls/hr Tamsulosin HCl [Flomax] Meds 05/12/25 09:00 Active 0.4 mg PO DAILY
--- NOTE | 2025-05-11 20:50 | CT ---
EXAM: CHEST CTA WITH CONTRAST (PULMONARY ARTERY) HISTORY: Chest pain and shortness of breath. Tachycardia. TECHNIQUE: CTA acquisition of the chest from the thoracic inlet to the upper abdomen following IV contrast administration timed to filling of the pulmonary artery. IV Contrast: Administered. 3D/MIP/VR images were utilized. CT Dose Reduction Techniques Employed: Yes. COMPARISON: CT pulmonary angiogram dated 12/06/2024 FINDINGS: Pulmonary Embolism: - Diagnostic quality: Suboptimal opacification of peripheral branches. - Central (Main/Lobar/Interlobar): No embolus. - Peripheral (Segmental/Subsegmental): Not assessed. - Right ventricle/Left ventricle ratio: Normal. Lines, Tubes, Devices: None. Lung Parenchyma and Airways: Central airways are patent without endobronchial lesion. Patchy consolidation in the left lower lobe consistent with pneumonia. No other airspace or interstitial disease. No suspicious pulmonary nodule. Benign calcified granuloma in the left lower lobe posteriorly. Pleural Space: No pleural effusion or thickening. No pneumothorax. Thoracic Inlet, Mediastinum, and Symone: Thyroid gland is normal. No lymphadenopathy. Benign subcarinal and left hilar calcified lymph nodes. Heart, Vessels, and Pericardium: Dilated ascending thoracic aorta measuring 4.0 cm, unchanged. Aortic arch and descending aorta are not dilated. No aortic dissection. The heart chambers are not enlarged. There is no pericardial effusion or thickening. Bones and Soft Tissues: There is no fracture or lytic lesion. Chest wall soft tissues are unremarkable. Upper Abdomen: Diffuse decreased attenuation of the liver consistent with fatty metamorphosis. Visualized portions of spleen and adrenals are normal. IMPRESSION: 1. No evidence of central pulmonary embolism. 2. Suboptimal opacification of peripheral pulmonary arteries. 3. Left lower lobe pneumonia. 4. Old calcified granulomatous disease. 5. Dilated ascending thoracic aorta measuring 4.0 cm, unchanged. 6. No aortic dissection. 7. Fatty metamorphosis of the liver. 8. Otherwise unremarkable CT scan of the chest. All CT scans are performed using dose optimization techniques as appropriate to the performed exam and include at least one of the following: Automated exposure control, adjustment of the mA and/or kV according to size, and the use of iterative reconstruction technique.
[2025-05-11] MEDS: K-DUR PO ONE (22:19)
[2025-05-12 05:49] LABS: IMMATURE GRANULOCYTE # (AUTO) 0.0 (0.0-1.0); IMMATURE GRANULOCYTE % (AUTO) 0.3 % (0.0-5.0); RDW COEFFICIENT OF VARIATION 12.5 % (11.6-14.8)
[2025-05-12 06:01] LABS: CREATININE 0.84 mg/dL (0.60-1.10)
[2025-05-12] MEDS: ZESTRIL PO SCH (08:59)
[2025-05-12] MEDS: PROTONIX PO SCH (08:59)
[2025-05-12] MEDS: ROCEPHIN 1 GM/50 ML D5W 1 GM/50 ML BAG IV SCH (09:01)
[2025-05-12] MEDS: FLOMAX PO SCH (09:02)
--- NOTE | 2025-05-12 12:47 | PCM.PROG ---
Date/Time Seen Date Seen by Provider: 05/12/25 Time Seen by Provider: 08:30 Provider Provider: [facility] Chief Complaint Chief Complaint: CAP,ABELINO Subjective Subjective: Patient states he is feeling better today. He still has a productive cough with sputum production. Denies shortness of breath at rest but states he feels short of breath when up and moving. Claims he has been having fever and chills but those have improved. Is still requiring 2 L of oxygen with O2 sat at 90-92%. There is concern for sleep apnea, he states his PCP has told him there is a possibility but he has not had a sleep study to be diagnosed. Objective Appearance: Positive Well-appearing, No Apparent Distress, Alert and Oriented x3 and Obese Chest/Lungs: Positive Symmetrical With Equal Breath Sounds, Wheezes and Good Air Movement all 4 Lung Ceballos; Negative Rales or Rhonci Heart: Positive RRR; Negative Murmur, Irregular Rhythm, Tachycardia or Bracycardia GI/: Positive Soft, Nontender, Bowel Sounds Normal and No Distention Neurological: Positive Sensation Intact, Motor intact, Cranial Nerves Intact, Alert and Oriented Vital Signs Vital Signs: Vital Signs: Last 24 Hours 05/11/25 16:35 05/11/25 16:44 05/11/25 17:00 Temperature 100.4 F H Temperature Source Oral Pulse Rate 115 H Pulse Rate [Apical] Respiratory Rate 22 H 20 Blood Pressure Blood Pressure Mean Blood Pressure Left Arm 120/77 Blood Pressure Location Blood Pressure Position Supine O2 Sat by Pulse Oximetry 91 L Oxygen Delivery Method Nasal Cannula Room Air Nasal Cannula Oxygen Flow Rate 2 Height 5 ft 7 in Weight 138.1 kg Telemetry Type Telemetry Monitoring Irregular Telemetry Rate (Approximate) Telemetry Heart Rate Telemetry SPO2 EKG MN Interval EKG QRS Interval Telemetry Strip Reading 05/11/25 17:00 05/11/25 17:47 05/11/25 18:00 Temperature 99.7 F Temperature Source Oral Pulse Rate 114 H Pulse Rate [Apical] Respiratory Rate 20 Blood Pressure 120/77 Blood Pressure Mean 91 Blood Pressure Left Arm Blood Pressure Location Left Arm Blood Pressure Position O2 Sat by Pulse Oximetry 93 L Oxygen Delivery Method Nasal Cannula Nasal Cannula Nasal Cannula Oxygen Flow Rate 2 Height Weight Telemetry Type Telemetry Monitoring Irregular Telemetry Rate (Approximate) Telemetry Heart Rate Telemetry SPO2 EKG MN Interval EKG QRS Interval Telemetry Strip Reading 05/11/25 18:08 05/11/25 19:00 05/11/25 19:00 Temperature Temperature Source Pulse Rate Pulse Rate [Apical] Respiratory Rate Blood Pressure Blood Pressure Mean Blood Pressure Left Arm Blood Pressure Location Blood Pressure Position O2 Sat by Pulse Oximetry 92 L Oxygen Delivery Method Nasal Cannula Nasal Cannula Oxygen Flow Rate 2 Height Weight Telemetry Type Remote Telemetry Telemetry Monitoring Continues Irregular Telemetry Rate (Approximate) Telemetry Heart Rate 110 H Telemetry SPO2 91 L EKG MN Interval 0.16 EKG QRS Interval 0.[address] 05/11/25 19:25 05/11/25 19:57 05/11/25 19:57 Temperature Temperature Source Pulse Rate Pulse Rate [Apical] Respiratory Rate Blood Pressure Blood Pressure Mean Blood Pressure Left Arm Blood Pressure Location Blood Pressure Position O2 Sat by Pulse Oximetry Oxygen Delivery Method Nasal Cannula Nasal Cannula Nasal Cannula Oxygen Flow Rate 2 Height Weight Telemetry Type Telemetry Monitoring Irregular Telemetry Rate (Approximate) Telemetry Heart Rate Telemetry SPO2 EKG MN Interval EKG QRS Interval Telemetry Strip Reading 05/11/25 20:00 05/11/25 20:47 05/11/25 21:22 Temperature 96.8 F L Temperature Source Tympanic Pulse Rate 100 Pulse Rate [Apical] 110 H Respiratory Rate 20 16 Blood Pressure 109/62 Blood Pressure Mean 77 Blood Pressure Left Arm Blood Pressure Location Left Radial Artery Blood Pressure Position Supine O2 Sat by Pulse Oximetry 92 L Oxygen Delivery Method Nasal Cannula Nasal Cannula Nasal Cannula Oxygen Flow Rate 4 2 Height Weight Telemetry Type Telemetry Monitoring Irregular Telemetry Rate (Approximate) Telemetry Heart Rate Telemetry SPO2 EKG MN Interval EKG QRS Interval Telemetry Strip Reading 05/11/25 21:50 05/11/25 22:50 05/12/25 00:00 Temperature Temperature Source Pulse Rate Pulse Rate [Apical] Respiratory Rate Blood Pressure Blood Pressure Mean Blood Pressure Left Arm Blood Pressure Location Blood Pressure Position O2 Sat by Pulse Oximetry Oxygen Delivery Method Nasal Cannula Nasal Cannula Nasal Cannula Oxygen Flow Rate Height Weight Telemetry Type Telemetry Monitoring Irregular Telemetry Rate (Approximate) Telemetry Heart Rate Telemetry SPO2 EKG MN Interval EKG QRS Interval Telemetry Strip Reading 05/12/25 00:57 05/12/25 01:00 05/12/25 01:00 Temperature 97.6 F Temperature Source Oral Pulse Rate 96 Pulse Rate [Apical] Respiratory Rate 16 Blood Pressure 141/93 H Blood Pressure Mean 109 Blood Pressure Left Arm Blood Pressure Location Right Arm Blood Pressure Position Supine O2 Sat by Pulse Oximetry 93 L Oxygen Delivery Method Nasal Cannula Nasal Cannula Oxygen Flow Rate 4 Height Weight Telemetry Type Remote Telemetry Telemetry Monitoring Continues Irregular Telemetry Rate (Approximate) Telemetry Heart Rate 88 Telemetry SPO2 91 L EKG MN Interval 0.15 EKG QRS Interval 0.09 Telemetry Strip Reading SR 05/12/25 02:00 05/12/25 03:00 05/12/25 04:00 Temperature Temperature Source Pulse Rate Pulse Rate [Apical] Respiratory Rate Blood Pressure Blood Pressure Mean Blood Pressure Left Arm Blood Pressure Location Blood Pressure Position O2 Sat by Pulse Oximetry Oxygen Delivery Method Nasal Cannula Nasal Cannula Nasal Cannula Oxygen Flow Rate Height Weight Telemetry Type Telemetry Monitoring Irregular Telemetry Rate (Approximate) Telemetry Heart Rate Telemetry SPO2 EKG MN Interval EKG QRS Interval Telemetry Strip Reading 05/12/25 05:00 05/12/25 06:00 05/12/25 06:00 Temperature 96.8 F L Temperature Source Tympanic Pulse Rate 103 H Pulse Rate [Apical] Respiratory Rate 16 Blood Pressure 135/88 Blood Pressure Mean 103 Blood Pressure Left Arm Blood Pressure Location Left Arm Blood Pressure Position Supine O2 Sat by Pulse Oximetry 91 L Oxygen Delivery Method Nasal Cannula Nasal Cannula Nasal Cannula Oxygen Flow Rate 2 Height Weight Telemetry Type Telemetry Monitoring Irregular Telemetry Rate (Approximate) Telemetry Heart Rate Telemetry SPO2 EKG MN Interval EKG QRS Interval Telemetry Strip Reading 05/12/25 06:00 05/12/25 07:00 05/12/25 07:00 Temperature Temperature Source Pulse Rate Pulse Rate [Apical] Respiratory Rate Blood Pressure Blood Pressure Mean Blood Pressure Left Arm Blood Pressure Location Blood Pressure Position O2 Sat by Pulse Oximetry Oxygen Delivery Method Nasal Cannula Nasal Cannula Oxygen Flow Rate 4 Height Weight Telemetry Type Remote Telemetry Telemetry Monitoring Continues Irregular Telemetry Rate (Approximate) 90-100 BPM Telemetry Heart Rate 99 Telemetry SPO2 EKG MN Interval 0.14 EKG QRS Interval 0.07 Telemetry Strip Reading NSR 05/12/25 08:00 05/12/25 08:00 05/12/25 09:00 Temperature Temperature Source Pulse Rate Pulse Rate [Apical] Respiratory Rate 103 H Blood Pressure Blood Pressure Mean Blood Pressure Left Arm Blood Pressure Location Blood Pressure Position O2 Sat by Pulse Oximetry Oxygen Delivery Method Nasal Cannula Nasal Cannula Nasal Cannula Oxygen Flow Rate 2 Height Weight Telemetry Type Telemetry Monitoring Irregular Telemetry Rate (Approximate) Telemetry Heart Rate Telemetry SPO2 EKG MN Interval EKG QRS Interval Telemetry Strip Reading 05/12/25 09:36 05/12/25 09:50 05/12/25 10:00 Temperature Temperature Source Pulse Rate Pulse Rate [Apical] Respiratory Rate Blood Pressure Blood Pressure Mean Blood Pressure Left Arm Blood Pressure Location Blood Pressure Position O2 Sat by Pulse Oximetry 91 L Oxygen Delivery Method Nasal Cannula Nasal Cannula Oxygen Flow Rate 2 Height 5 ft 7 in Weight 138.1 kg Telemetry Type Telemetry Monitoring Irregular Telemetry Rate (Approximate) Telemetry Heart Rate Telemetry SPO2 EKG MN Interval EKG QRS Interval Telemetry Strip Reading 05/12/25 10:00 05/12/25 11:00 Temperature 96.6 F L Temperature Source Temporal Artery Scan Pulse Rate 116 H Pulse Rate [Apical] Respiratory Rate 20 Blood Pressure 101/71 Blood Pressure Mean 81 Blood Pressure Left Arm Blood Pressure Location Right Arm Blood Pressure Position Sitting O2 Sat by Pulse Oximetry 94 L Oxygen Delivery Method Nasal Cannula Nasal Cannula Oxygen Flow Rate 2 Height Weight Telemetry Type Telemetry Monitoring Irregular Telemetry Rate (Approximate) Telemetry Heart Rate Telemetry SPO2 EKG MN Interval EKG QRS Interval Telemetry Strip Reading Lab Results Lab Results: Lab Results: Last 24 Hours 05/12/25 05/11/25 05/11/25 05:30 12:58 12:51 WBC 9.86 12.93 H RBC 5.03 5.04 Hgb 15.6 15.8 Hct 47.2 46.7 MCV 93.8 92.7 MCH 31.0 31.3 H MCHC 33.1 33.8 RDW Coeff of Jack 12.5 12.4 Plt Count 291 306 Immature Gran % (Auto) 0.3 0.4 Neut % (Auto) 89.0 H 74.3 Lymph % (Auto) 6.2 L 9.9 L Garvin % (Auto) 4.4 14.2 H Eos % (Auto) 0.0 0.8 Baso % (Auto) 0.1 0.4 Neut # (Auto) 8.8 H 9.6 H Lymph # (Auto) 0.6 1.3 Garvin # (Auto) 0.4 1.8 Eos # (Auto) 0.0 0.1 Baso # (Auto) 0.0 0.1 Immature Gran # (Auto) 0.0 0.1 Sodium 136.1 133.3 L Potassium 3.60 3.36 L Chloride 98.5 95.4 L Carbon Dioxide 26.6 28.4 Anion Gap 14.60 12.86 BUN 20.9 H 28.6 H Creatinine 0.84 D 1.37 H Estimated GFR (MDRD) 99.00 56.00 BUN/Creatinine Ratio 24.88 20.87 Glucose 148.2 H 119.1 H Lactic Acid 0.90 Calcium 9.24 9.39 Total Bilirubin 0.77 1.22 AST 42.9 55.4 ALT 41.4 46.1 Alkaline Phosphatase 66.3 79.0 NT-Pro-B Natriuret Pep 66 Total Protein 8.22 H 8.49 H Albumin 4.26 4.46 Globulin 3.96 4.03 Albumin/Globulin Ratio 1.07 1.10 Influ A Molecular Assay Negative by naat Influ B Molecular Assay Negative by naat RSV Antigen Negative by naat SARS CoV-2 RNA Rapid LEAH Negative Additional Comments Additional Comments: I have independently reviewed and interpreted the labs/EKGs/imaging ordered during this hospital stay. I have reviewed outside records that are available in our EMR that pertain to medical stay including imaging/notes/labs from previous visits. EXAM: CHEST PA AND LATERAL HISTORY: cough, fever. COMPARRISON: 12/06/2024 FINDINGS: The cardiomediastinal silouette is normal in size. Mediastinal and left perihilar calcified granulomas are again suggested. Pulmonary vascularity is within normal limits. Mild left basilar patchy opacities are seen. Osseous structures are unremarkable. Active Medications Active Medications: Medications Generic Name Dose Route Start Last Admin Trade Name Freq PRN Reason Stop Dose Admin Acetaminophen 650 mg 05/11/25 14:50 05/11/25 17:40 Acetaminophen 325 Mg Tablet PO 650 mg Q4H PRN Administration Mild Pain Albuterol Sulfate 2.5 mg 05/11/25 16:58 Albuterol Sulfate 0.083% Vial.Neb NEB RTQ4H PRN Wheezing Albuterol/Ipratropium 3 ml 05/11/25 18:00 05/12/25 09:45 Ipratropium/Albuterol Vial.Neb NEB 3 ml RTQ4H RUBÉN Administration Azithromycin 500 mg 05/11/25 16:00 05/12/25 08:59 Azithromycin 250 Mg Tablet PO 05/14/25 15:59 500 mg DAILY RUBÉN Administration Sodium Chloride 1,000 mls @ 75 mls/hr 05/11/25 15:00 05/12/25 09:01 Sodium Chloride IV 75 mls/hr .[id number] RUBÉN Administration CEFTRIAXONE/D5W 1 GM PREMIX 1 gm in 50 mls @ 100 mls/hr 05/12/25 09:00 05/12/25 09:01 Rocephin 1 Gm/50 Ml D5w IV 05/15/25 08:59 100 mls/hr DAILY RUBÉN Administration Lisinopril 40 mg 05/12/25 09:00 05/12/25 08:59 Lisinopril 40 Mg Tablet PO 40 mg DAILY RUBÉN Administration Methylprednisolone Sodium Succinate 40 mg 05/11/25 18:00 05/12/25 06:02 Methylprednisolone Sod Succ/Pf 40 Mg/Ml Vial IVP 40 mg Q8HR RUBÉN Administration Pantoprazole Sodium 40 mg 05/12/25 09:00 05/12/25 08:59 Pantoprazole Sodium 40 Mg Tablet. PO 40 mg QDAC2 RUBÉN Administration Tamsulosin HCl 0.4 mg 05/12/25 09:00 05/12/25 09:02 Tamsulosin Hcl 0.4 Mg Cap.Er.24h PO Not Given DAILY RUBÉN Plan Plan: Plan: 1. Sepsis in setting of CAP - blood cultures pending, rocephin and azith for abx coverage 2. Acute Hypoxic Respiratory Failure in setting of CAP - wean oxygen as tolerated, steroids, nebs 3. CAP - rocephin and azith, nebs, steroids, MRSA, strep pneumo, legionella, and sputum culture ordered, incentive spirometry 4. ABELINO stage 1 - Resolved, stop fluids 5. HTN - chronic, continue home medications 6. GERD - chronic, continue home medications DVT Prophylaxis: Ambulation Review Statement Review Statement: I have personally discussed and reviewed the patient's visit/currently labs/imaging/decision making with Dr. Suh, my supervising attending. Greater that 50 minutes spent with patient, 50% of the time spent with this patient was devoted to counseling and coordination of care.
[2025-05-12] MEDS: LOVENOX SUBCUT SCH (14:05)
[2025-05-13 01:47] VITALS: RESP 18
[2025-05-13 05:26] LABS: IMMATURE GRANULOCYTE # (AUTO) 0.1 (0.0-1.0); IMMATURE GRANULOCYTE % (AUTO) 0.5 % (0.0-5.0); RDW COEFFICIENT OF VARIATION 12.8 % (11.6-14.8)
[2025-05-13 05:37] LABS: CREATININE 0.82 mg/dL (0.60-1.10)
[2025-05-13 05:42] VITALS: BP 149/92; TEMP 97.8
[2025-05-13 07:55] VITALS: PULSE 114
--- NOTE | 2025-05-13 11:36 | DCSUM ---
Admission Date Admission Date: 05/11/25 Discharge Date Discharge Date: 05/13/25 Admission Diagnosis Admission Diagnosis: 1. Sepsis in setting of CAP 2. Acute Hypoxic Respiratory Failure in setting of CAP 3. CAP Discharge Diagnosis Discharge Diagnosis: 1. Sepsis in setting of CAP - ruled out 2. Acute Hypoxic Respiratory Failure in setting of CAP -resolved 3. CAP 4. ABELINO stage 1 - Resolved 5. HTN 6. GERD Hospital Provider Hospital Provider: JAMES CHRISTIANSON PA-C, [facility] [place] Phys[place] Primary Care Physician: MOHAN SYED Summary of History and Physical Summary of History and Physical: 45 yo male with pmh oh HTN, GERD, and kidney stones presented to the ER with complaints of cough, fever, and shortness of breath. States he has been sick for approximately 1 week. Initially started as a cough and congestion. Cough became productive the last couple days with yellow/green sputum. Reports shortness of a ir on exertion and has had a fever as high as 102. Chest xray showed left lower lobe pneumonia. Initially was not requiring oxygen in the ER. Met sepsis criteria and blood cultures obtained. Received a dose of levaquin. Admitted to med/surg observation. Per RN, upon arrival to the med/surg floor. O2 sat was running 87-89% on RA with HR in 110s. 2L o2 applied and sat increased to 92%. 100.4 temp as well. Hospital Course Subjective: Patient was treated with Rocephin, azithromycin, and steroids. He was eventually weaned to room air. Three-step performed and he has not qualified for oxygen. CTA performed and does not show an acute PE. He has remained mildly tachycardic. Looking back historically and his vitals he is always mildly tachycardic. Discussed initiating metoprolol with him although he would like to wait and talk with his PCP about this. He also desaturates into the upper 80s when sleeping soundly. He states he is aware he likely has sleep apnea and he is awaiting insurance in June for his PCP to start that workup. He is requesting discharge today. Will discharge on remainder of antibiotics, steroids and follow-up with PCP. Patient declines inhaler. Return with worsening symptoms. Appearance: Pleasant, No Apparent Distress and Alert HEENT: MMM CVS: No Murmur Abdomen: Soft, Non-Tender and No Distention Respiratory: No Accessory Muscle Use Extremities: No Edema Vital Signs: Most Recent Vital Signs Temperature 97.8 F 05/13/25 05:41 Temperature Source Tympanic 05/13/25 05:41 Temperature Source Oral 05/11/25 12:27 Pulse Rate 114 H 05/13/25 07:50 Respiratory Rate 18 05/13/25 05:41 Blood Pressure 149/92 H 05/13/25 05:41 Blood Pressure Mean 111 05/13/25 05:41 Blood Pressure Left Arm 120/77 05/11/25 16:44 Blood Pressure Location Left Radial Artery 05/13/25 05:41 Blood Pressure Position Sitting 05/13/25 05:41 O2 Sat by Pulse Oximetry 94 L 05/13/25 10:00 Oxygen Delivery Method Room Air 05/13/25 10:00 Oxygen Flow Rate 2 05/13/25 01:46 Height 5 ft 7 in 05/12/25 09:36 Weight 138.1 kg 05/12/25 09:36 Telemetry Type Remote Telemetry 05/13/25 07:00 Telemetry Monitoring Continues 05/13/25 07:00 Irregular Telemetry Rate (Approximate) 100-110 BPM 05/12/25 13:00 Telemetry Heart Rate 129 H 05/13/25 07:00 Telemetry SPO2 96 05/13/25 01:00 EKG DE Interval 0.14 05/13/25 07:00 EKG QRS Interval 0.09 05/13/25 07:[address] 05/13/25 07:00 Imaging: EXAM: CHEST PA AND LATERAL HISTORY: cough, fever. COMPARRISON: 12/06/2024 FINDINGS: The cardiomediastinal silouette is normal in size. Mediastinal and lef t perihilar calcified granulomas are again suggested. Pulmonary vascularity is within normal limits. Mild left basilar patchy opacities are seen. Osseous structures are unremarkable. IMPRESSION: Left basilar pneumonia. EXAM: CHEST CTA WITH CONTRAST (PULMONARY ARTERY) HISTORY: Chest pain and shortness of breath. Tachycardia. TECHNIQUE: CTA acquisition of the chest from the thoracic inlet to the upper abdomen following IV contrast administration timed to filling of the pulmonary artery. IV Contrast: Administered. 3D/MIP/VR images were utilized. CT Dose Reduction Techniques Employed: Yes. COMPARISON: CT pulmonary angiogram dated 12/06/2024 FINDINGS: Pulmonary Embolism: - Diagnostic quality: Suboptimal opacification of peripheral branches. - Central (Main/Lobar/Interlobar): No embolus. - Peripheral (Segmental/Subsegmental): Not assessed. - Right ventricle/Left ventricle ratio: Normal. Lines, Tubes, Devices: None. Lung Parenchyma and Airways: Central airways are patent without endobronchial lesion. Patchy consolidation in the left lower lobe consistent with pneumonia. No other airspace or interstitial disease. No suspicious pulmonary nodule. Benign calcified granuloma in the left lower lobe posteriorly. Pleural Space: No pleural effusion or thickening. No pneumothorax. Thoracic Inlet, Mediastinum, and Symone: Thyroid gland is normal. No lymphadenopathy. Benign subcarinal and left hilar calcified lymph nodes. Heart, Vessels, and Pericardium: Dilated ascending thoracic aorta measuring 4.0 cm, unchanged. Aortic arch and descending aorta are not dilated. No aortic di ssection. The heart chambers are not enlarged. There is no pericardial effusion or thickening. Bones and Soft Tissues: There is no fracture or lytic lesion. Chest wall soft tissues are unremarkable. Upper Abdomen: Diffuse decreased attenuation of the liver consistent with fatty metamorphosis. Visualized portions of spleen and adrenals are normal. IMPRESSION: 1. No evidence of central pulmonary embolism. 2. Suboptimal opacification of peripheral pulmonary arteries. 3. Left lower lobe pneumonia. 4. Old calcified granulomatous disease. 5. Dilated ascending thoracic aorta measuring 4.0 cm, unchanged. 6. No aortic dissection. 7. Fatty metamorphosis of the liver. 8. Otherwise unremarkable CT scan of the chest. Lab Results Last 24 Hours: 05/13/25 05:03 WBC 15.41 H D RBC 4.98 Hgb 15.4 Hct 47.5 MCV 95.4 H MCH 30.9 MCHC 32.4 RDW Coeff of Jack 12.8 Plt Count 359 Immature Gran % (Auto) 0.5 Neut % (Auto) 86.2 H Lymph % (Auto) 6.0 L Bell % (Auto) 7.2 Eos % (Auto) 0.0 Baso % (Auto) 0.1 Neut # (Auto) 13.3 H Lymph # (Auto) 0.9 Bell # (Auto) 1.1 Eos # (Auto) 0.0 Baso # (Auto) 0.0 Immature Gran # (Auto) 0.1 Sodium 139.3 Potassium 3.60 Chloride 98.3 Carbon Dioxide 28.7 Anion Gap 15.90 BUN 25.3 H Creatinine 0.82 Estimated GFR (MDRD) 102.00 BUN/Creatinine Ratio 30.85 Glucose 137.8 H Calcium 9.52 Total Bilirubin 0.52 AST 40.5 ALT 44.7 Alkaline Phosphatase 63.1 Total Protein 8.28 H Albumin 4.30 Globulin 3.98 Albumin/Globulin Ratio 1.08 Discharge Instructions Discharge Planning: Discharge Planning > [address] Avril Suh. Discharge Medications: Medications at Discharge (Home Meds & RX) lisinopril 40 mg tablet 40 mg PO DAILY #30 tab-caps 04/27/17 pantoprazole 40 mg tablet,delayed release 40 mg PO DAILY 12/30/18 tamsulosin 0.4 mg capsule (Flomax) 0.4 mg PO DAILY #10 caps 11/30/24 dicyclomine 20 mg tablet 20 mg PO 2XD PRN abdominal pain 05/11/25 hydrochlorothiazide 25 mg tablet 25 mg PO QAM blood pressure 05/11/25 azithromycin 250 mg tablet 250 mg PO DAILY 2 days #2 tabs 05/13/25 cefdinir 300 mg capsule 300 mg PO BID 3 days #6 caps 05/13/25 prednisone 20 mg tablet 20 mg PO BID 2 days #4 tabs 05/13/25 Discharge Plan Discharge Discharge Orders: Discharge Patient (ONCE); Ordered 05/13/25 Ordered By: JAMES CHRISTIANSON Activity Restrictions/Additional Instructions: DISCHARGE TO HOME DX: PNEUMONIA [facility]: [facility] ABX AND STEROIDS FOLLOW UP WITH PCP RECOMMEND SLEEP STUDY Patient Disposition: HOME SELF-CARE Prescriptions: New prednisone 20 mg tablet 20 mg PO BID 2 Days Qty: 4 0RF Rx Instructions: STARTING 05/14 azithromycin 250 mg tablet 250 mg PO DAILY 2 Days Qty: 2 0RF Rx Instructions: START ON 05/14 cefdinir 300 mg capsule 300 mg PO BID 3 Days Qty: 6 0RF Rx Instructions: START ON 05/14 Continued lisinopril 40 MG tablet 40 mg PO DAILY Qty: 30 pantoprazole 40 MG tablet,delayed release (DR/EC) 40 mg PO DAILY tamsulosin [Flomax] 0.4 mg capsule 0.4 mg PO DAILY Qty: 10 0RF dicyclomine 20 mg tablet 20 mg PO 2XD PRN (Reason: abdominal pain) hydrochlorothiazide 25 mg tablet 25 mg PO QAM Did you review [place] [employer] [facility] for ALL controlled substances?: Not Applicable Discussed opioids are addictive and Narcan is available by prescription or from pharmacy.: No Condition: Stable Referrals: MOHAN SYED [Primary Care Provider, [employer]] - 05/22/25 9:15 am
== END 2025-05-13 12:25 | disposition home or self-care (01) | DRG 189 ==
LOC: MEDSURG B 12:21 → ED 12:21 → MEDSURG B 16:40
PROVIDERS: ADMIT Hospitalist; ATTEND Physician Assistant